=== PATIENT | male | born 1970 ===

== ENCOUNTER 2016-04-18 19:15 | Emergency (ER) | payer BC ==
--- NOTE | 2016-04-18 19:35 | ERNOTE ---
Integumentary HPI - Narrative Date of Service: 04/18/16 - General Presenting Symptoms: insect bite Time Seen by Provider: 04/18/16 19:24 Source: patient - Immun/Allergies/Home Medications Immunizations: IMMUNIZATION HX Immunizations Up to Date No History of Influenza Vaccine No Allergies/Adverse Reactions: Allergies Allergy/AdvReac Type Severity Reaction Status Date / Time No Known Allergies Allergy Unverified 04/18/16 19:22 Home Medications: HOME MEDICATIONS Doxycycline Monohydrate 100 mg PO BID #20 tablet 04/18/16 [Last Taken Unknown] traMADol HCL [Ultram] 50 mg PO QID PRN #20 tablet 04/18/16 [Last Taken Unknown] - History of Present Illness Location: Reports: lower extremity Quality: Reports: painful Severity: moderate Exposure: Reports: no cause identified, other - he thinks an insect of some sort , possibly a spider Review of Systems - Review of Systems Constitutional: Present: See HPI EYE: Present: no symptoms reported ENT: Present: no symptoms reported Respiratory: Present: no symptoms reported Cardiology: Present: no symptoms reported Gastrointestinal/Abdominal: Present: no symptoms reported Genitourinary: Present: no symptoms reported Musculoskeletal: Present: no symptoms reported Skin: Present: other - right proximal thigh, with erythema and early lymphangitis Neurological: Present: no symptoms reported Endocrine: Present: no symptoms reported Hematologic/Lymphatic: Present: no symptoms reported Psych: Present: no symptoms reported - Patient's Past Medical History Patient History - Medical: No pertinent hx Patient History - Cancer: No Hx of Cancer Patient History - Surgical Procedures: Appendectomy - Family History borther Family History - Cardiac/Respiratory: Hypertension - Social History Living Situations: home Do you dip or chew tobacco: Yes Alcohol Use: none Drug Use: none Physical Exam - Physical Exam General Appearance: Present: wd/wn, alert, mild distress Eye Exam: Normal inspection: bilateral, PERRL: bilateral Ears, Nose, Throat: Present: normal ENT inspection, hearing grossly normal, normal pharynx Neck: Present: normal inspection, nontender Respiratory: Present: no respiratory distress, normal breath sounds, no accessory muscle use, chest nontender, lungs clear Cardiovascular/Chest: Present: regular rate, rhythm, no murmur, normal peripheral pulses Gastrointestinal/Abdominal: Present: normal bowel sounds, nontender, nondistended, soft, no organomegaly Rectal Exam: Present: deferred Back Exam: Present: normal inspection, normal range of motion Extremity Exam: Present: normal inspection, non-tender, no edema, normal range of motion Neurological Exam: Present: alert, oriented, normal mood/affect Skin Exam: Present: other - erythema and indurated area, no fluctuance noted at this juncture Lymphatic Exam: Present: no adenopathy ED Progress - Vital Signs Patient's Vital Signs:: I have reviewed the patient's vital signs. Vital Signs: Vital Signs 04/18/16 19:17 Temperature 35.9 C L Pulse Rate 96 Respiratory 18 Rate Blood Pressure 170/91 O2 Sat by Pulse 100 Oximetry - Progress/Reassessment Chief Complaint: Insect Bite Progress:: Unchanged - Transfer of Care Expected Disposition: Discharge Plan - Plan Plan: Pt given 1 gram of Rocephin and started on Doxycycline and he will return if the area worsens or starts to become boggy on palpation. Departure Clinical Impression: Epidermal inclusion cyst Cellulitis Qualifiers: Site of cellulitis: extremity Site of cellulitis of extremity: lower extremity Laterality: right Qualified Code(s): L03.115 - Cellulitis of right lower limb - Departure Disposition: Home self-care Condition: Good Instructions: Cellulitis, Adult, [id number] Prescriptions: Doxycycline Monohydrate 100 mg PO BID #20 tablet traMADol HCL [Ultram] 50 mg PO QID PRN #20 tablet PRN Reason: Moderate Pain
[2016-04-18 19:55] VITALS: BP 145/80
== END 2016-04-18 19:54 | disposition home or self-care (01) ==
LOC: ER 19:15
DX: L03.115 Cellulitis of right lower limb (principal); L72.0 Epidermal cyst; F17.200 Nicotine dependence, unspecified, uncomplicated